=== PATIENT | female | born 1965 | race Caucasian/White ===

== ENCOUNTER 2016-12-09 17:08 | Emergency (ER) | payer OTHER ==
[~2016-12-09 17:08] MED LIST: ADVIL200 M1 PO; ALBUTEROL SULF8.5 G1 INH; ALBUTEROL17 GM INH; ALPRAZOLAM PO; ASPIRIN PO; ASPIRIN81 M1 PO; ASPIRIN81 M2 PO; BACTRIM DS TABL1 TA2 PO; CELEXA PO; CELEXA20 MG PO; DARVOCET-N 1001 TA1 PO; DICLOXAXILLIN250 MG PO; DOXYCYCLINE PO; ERYTHROMYC3.5 GM OPT OD; FAMOTIDINE PO; FLAGYL PO; GLUCOPHAGE XR500 MG PO; GLUCOPHAGE500 MG PO; HYDROMET SYRUP480 ML PO; JANUMET; LEVEMIR100 UNITS/; LISINOPRIL PO; LISINOPRIL2.5 MG PO; LISINOPRIL20 MG PO; LISINOPRIL5 MG PO; LORTAB 7.5-5001 TAB; METFORMIN PO; PEPCID AC20 M1 PO; PERCOCET5/325 PO; PHENERGAN PO; PRAVASTATIN SOD10 MG PO; PROTONIX PO; PYRIDIUM PO; TERAZOL 745 GM TOP; TOBRAMYCIN-DEXAM5 ML OD; VICTOZA 3-0.6 MG/0.1 SQ; XANAX0.5 MG PO; ZITHROMAX PO
[2016-12-09] MEDS ORDERED: GLIPIZIDE PO (17:16)
== END 2016-12-09 18:50 | disposition home or self-care (01) ==
LOC: SED 17:08
DX: L50.0 Allergic urticaria (principal); J44.9 Chronic obstructive pulmonary disease, unspecified; E11.9 Type 2 diabetes mellitus without complications; E78.5 Hyperlipidemia, unspecified; Z90.49 Acquired absence of other specified parts of digestive tract; F17.200 Nicotine dependence, unspecified, uncomplicated; Z88.8 Allergy status to other drugs, medicaments and biological substances; Z79.82 Long term (current) use of aspirin; Z79.899 Other long term (current) drug therapy
CPT/HCPCS: 99282